=== PATIENT | female | born 1995 | race Caucasian/White ===

== ENCOUNTER 2018-05-02 15:13 | Emergency (ER) | payer SELFPAY ==
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
[2018-05-02] MEDS ORDERED: Adacel (T-DAP) 0.5 ML VIAL ONE (16:52)
[2018-05-02] MEDS ORDERED: Lidocaine 1% PF 5 ML VIAL ONE (17:28)
[2018-05-02] MEDS ORDERED: Bacitracin Zinc 1 Packet ONE (17:52)
== END 2018-05-02 18:28 | disposition home or self-care (01) ==
LOC: ERS 15:13
DX: S01.01XA Laceration without foreign body of scalp, initial encounter (principal); S51.811A Laceration without foreign body of right forearm, initial encounter; S71.011A Laceration without foreign body, right hip, initial encounter; S71.111A Laceration without foreign body, right thigh, initial encounter; S81.011A Laceration without foreign body, right knee, initial encounter; S81.012A Laceration without foreign body, left knee, initial encounter; S60.222A Contusion of left hand, initial encounter; S40.211A Abrasion of right shoulder, initial encounter; S60.811A Abrasion of right wrist, initial encounter; S40.811A Abrasion of right upper arm, initial encounter; Z23 Encounter for immunization; V19.9XXA Pedal cyclist (driver) (passenger) injured in unspecified traffic accident, initial encounter
CPT/HCPCS: 12001; 70450; 90471; 90715; J2001